=== PATIENT | male | born 1985 | race Caucasian/White ===

== ENCOUNTER 2019-08-28 19:16 | Inpatient (IN) | payer SELFPAY ==
[2019-08-28 19:21] VITALS: BP 127/88; PULSE 110; RESP 18; TEMP 36.7; O2SAT 95; BMI 25.0
[2019-08-28 21:43] LABS: Alanine Aminotransferase 28 U/L (0-41); Albumin Level 4.2 g/dL (3.5-5.2); Alkaline Phosphatase 118 IU/L (40-130); Anion Gap 14.2 (5-19); Blood Urea Nitrogen 12 mg/dL (6-20); Calcium 9.6 mg/dL (8.5-10.5); Carbon Dioxide 28 mmol/L (22-29); Chloride 98 mmol/L (98-107); Globulin 3.5 g/dL (1.3-4.6); Glucose 133 mg/dL (65-115); Lipase 21 U/L (13-60); Potassium 4.2 mmol/L (3.5-5.1); Sodium 136 mmol/L (136-145); Total Bilirubin 0.2 mg/dL (0.15-1.2); Total Protein 7.7 g/dL (6.6-8.7)
[2019-08-28 21:50] LABS: Basophils % 0.5 %; Eosinophils # 0.3 10^3/uL (0.0-0.8); Hematocrit 39.3 % (42.0-52.0); Hemoglobin 13.1 g/dL (11.7-16.6); Mean Corpuscular HGB Conc 33.3 g/dL (30.0-36.0); Mean Corpuscular Volume 90.1 fL (80-94); Mean Platelet Volume 11.5 fL (7.4-10.4); Monocytes # 0.9 10^3/uL (0.2-0.9); Monocytes % 9.9 %; Neutrophils # 5.4 10^3/uL (1.8-7.7); Neutrophils % 62.5 %; Nucleated Red Blood Cells % 0 %; Platelet Count 196 10^3/cmm (130-400); Red Blood Count 4.36 10^6/uL (4.1-5.3); Red Cell Distribution Width 11.8 % (12.1-15.1); White Blood Count 8.6 10^3/uL (4.0-10.0)
[2019-08-28 22:34] LABS: Aspartate Amino Transferase 26 U/L (0-40)
--- NOTE | 2019-08-28 23:52 | ED_ITS ---
HPI - Male Genitourinary General: Chief complaint: Urogenital-Male Stated complaint: knot on groin area Time Seen by Provider: 08/28/19 23:28 History of Present Illness: HPI Narrative: Patient is a 33-year-old male who comes into the ED with pain and swelling on scrotum. Patient states that the pain and swelling started yesterday and has gotten more painful and larger. Patient has had gonorrhea in the past. He states he is only sexually active with his girlfriend for the past month and it has been unprotected sex. Patient stated he would like to be tested for coronary chlamydia. Patient says he started having a little bit of burning when he urinates but denies any blood in the urine. He denies any drainage from the sore on the scrotum. He feels a little short of breath at times due to the pain. Denies chest pain, nausea, vomiting, diarrhea, hematuria. Patient also is stating he would like to be admitted due to suicidal thoughts. Patient says his life is terrible right now and he feels depressed. Today he said he had thoughts of running out in front of traffic. He has not attempted suicide or used any alcohol or drugs the last 24 hours. Denies any overdosing. He is depressed but denies any fatigue, low energy or disinterest in activities. Review of Systems General: Reports: 10 or more systems reviewed and unremarkable except in HPI and below PFSH ED PFSH: Statuses (acute, chronic, etc) shown below reflect problem list status as previously entered and may not be historically accurate Social History Smoking and tobacco status: current every day smoker Physical Exam Const: COMMON NORMALS: oriented x3 HENMT: COMMON NORMALS: normocephalic HEAD & SCALP: normocephalic MOUTH: oral and palatal mucosa normal THROAT: posterior oropharynx normal and uvula midline Neck/C-Spine: COMMON NORMALS: supple GENERAL: Yes normal visual inspection Resp: COMMON NORMALS: normal respiratory effort, no retractions, no use of a ccessory muscles and clear to auscultation bilaterally AUSCULTATION: clear to auscultation bilaterally Cardio: COMMON NORMALS: regular rate, regular rhythm, S1 normal heart sound, S2 normal heart sound, no gallops, no clicks, no murmurs and peripheral pulses 2+ throughout RATE: regular rate RHYTHM: regular rhythm HEART SOUNDS: S1 normal and S2 normal PERIPHERAL PULSES: pulses 2+ throughout GI: COMMON NORMALS: normal to inspection, nondistended, normoactive bowel sounds, soft to palpation, non-tender and no masses PALPATION: Yes soft : COMMON NORMALS: Yes no CVA tenderness BLADDER/KIDNEY EXAM: Yes no CVA tenderness MALE GROIN/PERINEUM EXAM: No inguinal lymphadenopathy PENIS: normal penis and circumcised MEATUS: meatus normal SCROTUM: Yes scrotal mass (2 cm mass that is red and tender. No drainage.) Scrotal mass laterality: right TESTES: Yes testicular lie normal, No testicular swelling and No testicular tenderness Back/Pelvis: COMMON NORMALS: no CVA tenderness Extremity: COMMON NORMALS: normal to inspection Neuro: COMMON NORMALS: oriented x3 and moves all extremities Psych: COMMON NORMALS: mental status grossly normal, thought process normal and speech normal APPEARANCE: Yes grossly normal ATTITUDE: Yes calm ACTIVITY/MOTOR BEHAVIOR: Yes appropriate eye contact SPEECH: Yes normal speech THOUGHT PROCESS: normal thought process THOUGHT CONTENT: Yes normal thought content ATTENTION/CONCENTRATION: Yes attention grossly intact and Yes concentration grossly intact INSIGHT: insight good JUDGEMENT: judgment good Skin: TRAUMA: no lacerations or abrasions Procedures Abscess I/D Site: scrotum Sedation/analgesia: none Local Anesthetic: lidocaine 2% Amount of anesthesia used (mL): 10 Technique: incised with #11 blade Amount of fluid expressed (mL): 5 (Foul smelling purulent fluid) Irrigation: No Packing used?: none Course ED course: I spoke with Dr. Carranza about the patient's case and how he is stating he is suicidal. Dr. Carranza will be handling the admission of patient. Consultations: Consultation #1: I spoke with Dr. Douglas about patient and he said to go ahead and admit patient. Time: 02:41 Vital Signs: Vital signs: Vital Signs Temperature 98.1 F 08/28/19 19:21 Pulse Rate 77 08/29/19 00:37 Respiratory Rate 18 08/28/19 19:21 Blood Pressure 114/74 08/29/19 00:37 Pulse Oximetry 96 08/29/19 00:37 MDM - Male Lab Data: Attestation: I reviewed the patient's lab results. Labs: Lab Results 08/28/19 08/28/19 Range/Units 21:23 21:23 WBC 8.6 (4.0-10.0) 10^3/ uL RBC 4.36 (4.1-5.3) 10^6/u L Hgb 13.1 (11.7-16.6) g/dL Hct 39.3 L (42.0-52.0) % MCV 90.1 (80-94) fL MCH 30.0 (28.0-34.0) pg MCHC 33.3 (30.0-36.0) g/dL RDW 11.8 L (12.1-15.1) % Plt Count 196 (130-400) 10^3/c mm MPV 11.5 H (7.4-10.4) fL Neut % (Auto) 62.5 % Lymph % (Auto) 23.0 % [place] % (Auto) 9.9 % Eos % (Auto) 4.0 % Baso % (Auto) 0.5 % Neut # (Auto) 5.4 (1.8-7.7) 10^3/u L Lymph # (Auto) 2.0 (0.8-4.8) 10^3/u L [place] # (Auto) 0.9 (0.2-0.9) 10^3/u L Eos # (Auto) 0.3 (0.0-0.8) 10^3/u L Baso # (Auto) 0.0 (0.0-0.1) 10^3/u L Nucleated RBC % (a uto) 0 % Nucleated RBCs # 0.0 /100WBC Sodium 136 (136-145) mmol/L Potassium 4.2 (3.5-5.1) mmol/L Chloride 98 (98-107) mmol/L Carbon Dioxide 28 (22-29) mmol/L Anion Gap 14.2 (5-19) BUN 12 (6-20) mg/dL Creatinine 1.0 (0.7-1.2) mg/dL GFR Calculation 85.0 L (90-130) mL/min Glucose 133 H (65-115) mg/dL Calcium 9.6 (8.5-10.5) mg/dL Total Bilirubin 0.2 (0.15-1.2) mg/dL AST 26 (0-40) U/L ALT 28 (0-41) U/L Alkaline Phosphata se 118 (40-130) IU/L Total Protein 7.7 (6.6-8.7) g/dL Albumin 4.2 (3.5-5.2) g/dL Globulin 3.5 (1.3-4.6) g/dL Lipase 21 (13-60) U/L Imaging Data: US: Attestation: I personally reviewed and interpreted this imaging study as follows: My impression: I discussed the preliminary report with the electro mechanical solar technician. Radiologist's impression: Prelim report?no epididymitis, blood flow to testicles is good. No testicular swelling. Patient does have an encapsulated abscess on the scrotum. Discharge Plan Discharge Admit Provider: Jonnathan Douglas Clinical Impression: Suicidal ideation, Abscess Condition: Stable Coding Level of Care Code ED Associate Professor Computer Science for Oma Oneill
--- NOTE | 2019-08-29 00:02 | US_ITS ---
WS: [id number] SCROTAL ULTRASOUND EXAMINATION CLINICAL INFORMATION: Scrotal pain COMPARISON: None. FINDINGS: TESTES In the right scrotal wall there is a heterogeneous collection measuring 1.2 x 1.3 suspicious for inf ected fluid collection/abscess. Recommend correlation for cellulitis and infection. Normal in size and echotexture, without focal lesion. Color Doppler: Normal color Doppler flow pattern. Right testes size: 4.7 cm x 2.4 cm x 2.8 cm. Left testes size: 4.8 cm x 2.5 cm x 2.6 cm. EPIDIDYMIDES Normal in size and echotexture. Small left spermatocele measuring 3.9 mm Color Doppler: Normal color Doppler flow pattern. Right epididymis size: 1.1 cm Left epididymitis size: 0.8 cm HYDROCELE None. VARICOCELE None. OTHER FINDINGS None. US/US scrotum [id number] IMPRESSION: 1. Heterogeneous complex fluid collection involving the right scrotal wall tyrese suring 1.2 x 1.3 cm suspicious for abscess. 2. Testicles are otherwise normal in appearance.
[2019-08-29] MEDS: HYDROcodone-acetaminophen 7.5-325 mg Tablet 1 TAB PO (00:19)
[2019-08-29 00:37] VITALS: BP 114/74; PULSE 77; O2SAT 96
--- NOTE | 2019-08-29 01:33 | PC.NURSE ---
portable ultrasound at bedside
[2019-08-29] MEDS: cefTRIAXone 1,000 mg SDV 250 MG IM (02:35)
[2019-08-29] MEDS: azithromycin 250 mg Tablet 1000 MG PO (02:35)
[2019-08-29] MEDS: HYDROcodone-acetaminophen 5-325 mg Tablet 1 TAB PO (03:07)
[2019-08-29] MEDS: lidocaine 2% INJ 20 mL INJECTION (03:07)
--- NOTE | 2019-08-29 03:43 | PC.NURSE ---
Pt placed in paper scrubs and in safe room after saying he was suicidal. All of pt's belongings removed.
[2019-08-29 03:51] VITALS: BP 111/56; PULSE 86; O2SAT 96
[2019-08-29 04:06] LABS: Add Urine Microscopic? YES; Bilirubin Urine Neg (NEGATIVE); Blood Urine 2+ (Negative); Glucose Urine UA Norm (Normal); Ketones Urine Negative (Negative); Leukocyte Esterase Urine Negative (Negative); Nitrate Urine Negative (Negative); Protein Urine Neg (Negative); Urine Appearance Clear (CLEAR); Urine Color Yellow (Yellow); Urobilinogen Urine Norm (Negative); pH Urine 6 (5-7)
[2019-08-29 04:14] LABS: Add Urine Culture? No; Bacteria Urine TRACE
[2019-08-29 05:04] LABS: Barbiturates Screen Urine Negative (Negative); Benzodiazepines Screen Urine Negative (Negative); Cocaine Screen Urine Negative (Negative); Opiate Screen Urine Negative (Negative); PCP Screen Urine Negative (Negative); THC Screen Urine Positive (Negative)
[2019-08-29 05:17] LABS: Amphetamines Screen Urine Positive (Negative)
[2019-08-29 05:17] LABS: Acetaminophen < 5.0 ug/mL (10-30); Alcohol Level < 10 mg/dL (0-10); Salicylate < 0.3 mg/dL (3-10)
[2019-08-29 06:00] VITALS: BP 100/58; PULSE 70; RESP 18; TEMP 36.8; O2SAT 98
[2019-08-29] MEDS: sulfamethoxazole-trimeth DS 160-800 mg Tablet 1 TAB PO ×2 (07:44→17:57)
[2019-08-29] MEDS: acetaminophen 325 mg Tablet 650 MG PO ×2 (07:44→13:37)
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
[2019-08-29 13:11] VITALS: BP 112/68; PULSE 75; RESP 20; TEMP 36.6; O2SAT 97
[2019-08-29] MEDS: OLANZapine ODT 5 MG TABLET PO (13:37)
[2019-08-29 21:09] VITALS: BP 95/53; PULSE 70; RESP 18; TEMP 36.8; O2SAT 97
[2019-08-30 06:00] VITALS: BP 108/60; PULSE 52; RESP 17; TEMP 36.7; O2SAT 98
[2019-08-30] MEDS: sulfamethoxazole-trimeth DS 160-800 mg Tablet 1 TAB PO (08:41)
[2019-08-30] MEDS: buPROPion SR (12 HR) 150 mg Tablet PO (08:41)
[2019-08-30] MEDS: OLANZapine ODT 5 MG TABLET PO (09:35)
[2019-08-30] MEDS: hyDROXYzine 25 mg Capsule 50 MG PO (09:35)
--- NOTE | 2019-08-30 09:35 | PC.NURSE ---
PRN VISTARIL & ZYPREXA ZYDIS VISTARIL 50 MG GIVEN PO PER PT C/O ANXIETY, ZYPREXA ZYDIS 5 MG GIVEN PO PER PT C/O INCREASED AGITATION. PT PACING IN HALLWAY LINGERING BY NURSES STATION, REQUESTING TO BE DISCHARGED NOW PT STATED HE HAS COURT DATE COMING UP AND DOESN'T KNOW HOW HE WILL GET THERE, WISHING HE CAN GO HOME TODAY TO GET THINGS DONE. STAFF WILL CONT TO MONITOR
--- NOTE | 2019-08-30 12:33 | P.DS_ITS ---
Diagnoses at Discharge Other Information Additional DC diagnoses/information: Suicidal ideation, now resolved. Scrotal abscess, improved. Reason for Visit Reason for Visit: Reason For Visit: knot on groin area Hospital Course Discharge Summary The patient indicates that he originally thought he was suicidal but now notes that he is not. He was angry and agitated but now realizes he needs to get [place] court [place] a hearing on the 18. He says that he is fine and not suicidal now and is desirous of signing out AMA. I personally reviewed at length his disorder, and the consequences of relieving us of all responsibility for his care. He said he is more than happy to do this, as he will suffer legal consequences which he does not want to incur. I pointed out the necessity to pursue follow-up for management of his scrotal wound he says he will do that elsewhere. I assessed his competence and he is, per my assessment today, capable of formulating a rational and factual assessment of healthcare alternatives and reasonably weighing them, even if he makes a choice with which I do not agree. Involuntary Hold Information 96 Hour Hold: 96 Hour Involuntary Admission: No Mental Status Exam MSE Comments: The patient is alert and oriented to person, place, time, and situation. Hygiene is well groomed and clean. Sensorium is clear and he und erstands what we tell him and what's going to happen if he signed out AMA. The patient maintains appropriate eye contact, is cooperative and relates well to me. Behavior shows no psychomotor agitation. Mood is calm and euthymic. Affect is appropriate to his mood. Thought processes are logical and goal-directed and they are free of racing, blocking or looseness of association. Speech is of normal rate and volume, without dysarthria, aprosody or pressure. There is no inordinate latency of response. The patient denies auditory or visual hallucinations or delusions. The patient denies suicidal or homicidal ideation, plan or intent. He exhibited no assaultive behavior at any time. Memory is intact for recent and remote events. Fund of knowledge is adequate given vocabulary. Insight and judgment were deemed to be fair given the recognition of problems. Discharge Data Data Completed and Pending: Completed Studies During Hospitalization Category Date Time Status US scrotum [id number] Urgent Ultrasound 08/29/19 00:02 Completed Pending at discharge Category Date Time Status Chlamydia / Gonor dinorah Panel Stat Lab 08/29/19 00:22 Received Wound Culture and Gram Stain Stat Lab 08/29/19 03:30 Results Vitals: Last Vital Signs Temp 98.1 F 08/30/19 06:00 Pulse 52 L 08/30/19 06:00 Resp 17 08/30/19 06:00 BP 108/60 08/30/19 06:00 Pulse Ox 98 08/30/19 06:00 Discharge Plan Discharge Patient Disposition: Home, Self-Care Condition: Stable Prescriptions: Continued No Known Home Medications RF: 0 Discharge Orders: Discharge Order (Routine); Ordered 08/30/19 Ordered By: Otilio Yañez Referrals: URGENT CARE PROVIDERS [Provider Group] - 4-7 days (Follow up if needed for abcess.) [facility] [Outside] - None (Patient needs follow-up with scrotal infection. I have advised him to pursue care at outpatient clinic. Patient wants to sign out AMA, which he understands releases the hospital and its staff from all responsibility for his health care, safety and wellbeing. I believe he is competent to understand these consequences and elects nonetheless to incur them. This is the product of my protracted discussion with him and my assessment of him as competent to make a rational and factual choice regarding these matters.) Discharge Diet: Usual diet Discharge Activity: Increase activity as tolerated Activity Restrictions/Additional Instructions: Patient needs follow-up for abscess on scrotum. He understands this. Discharge Attestations NPU Time Spent in Discharge Care*: greater than 30 min Specific Discharge Activities: Specific discharge activities: educating patient, documenting/other paperwork and evaluating patient/reviewing data Status at Discharge: Cognitive status at discharge: cognitively intact , Behavioral status at discharge: cooperative , Functional status at discharge: independent ambulation Overall status at discharge: patient is progressing back to baseline Coding Level of Care Code Acute Security Dispatcher for Oma Oneill
[2019-08-30 12:46] VITALS: BP 108/60; PULSE 52; RESP 17; TEMP 36.7; O2SAT 98
== END 2019-08-30 12:45 | disposition home or self-care (01) | DRG 885 ==
LOC: ER 23:28 → NP 08-29 03:17
PROVIDERS: Emergency Medicine; Admitting Provider Psychiatry & Neurology Psychiatry; Emergency Provider Physician Assistant; Visit Provider Psychiatry & Neurology Psychiatry
DX: F30.9 Manic episode, unspecified (principal); R45.851 Suicidal ideations; F17.210 Nicotine dependence, cigarettes, uncomplicated; G89.29 Other chronic pain; M54.9 Dorsalgia, unspecified; B19.20 Unspecified viral hepatitis C without hepatic coma; F12.90 Cannabis use, unspecified, uncomplicated; N50.82 Scrotal pain; R20.8 Other disturbances of skin sensation
CPT/HCPCS: 12345; 36415; 55100; 76870; 80053; 80307; 81001; 83690; 85025; 87070; 87077; 87186; 87205; 87491; 87591; 96372; 99283; J0696; J2001; Q0144